=== PATIENT | female | born 1975 | race Caucasian/White ===

== ENCOUNTER 2016-11-18 22:08 | Emergency (ER) | payer MEDICAID, OTHER ==
[~2016-11-18] VITALS: Ht 162.6 cm; Wt 56.7 kg
[2016-11-18 22:15] VITALS: BP 131/106
--- NOTE | 2016-11-18 22:20 | NUR ---
PT TAKEN TO [facility]
--- NOTE | 2016-11-18 22:32 | NUR ---
Dr. Hobson evaluating patient
[2016-11-18] MEDS ORDERED: ALBUTEROL SULFATE/IPRATROPIU 3 ML SOL IH ONE (22:35)
[2016-11-18] MEDS ORDERED: predniSONE 20 MG TAB PO ONE (22:35)
--- NOTE | 2016-11-18 22:37 | NUR ---
PT MOVED TO BED 6
--- NOTE | 2016-11-18 22:37 | NUR ---
41Y/F PRESENT TO ED WITH C/O SOB X 1 DAY. PT. HX. ASTHMA, ON INHALLER, SOB NOT RELIEF. AAO X4, AMBULATORY WITH STEADY GAIT. RESPIRATIONS ROOM AIR, UNLABORED, BILATERAL LUNGS WHEEZING. C/O CHEST PAIN, TIGHNESS 02/14. VSS, ER MD MADE AWARE OF PT. STATUS.
--- NOTE | 2016-11-18 22:38 | NUR ---
RT AT BEDSIDE 1ST HHN TX STRT
--- NOTE | 2016-11-18 22:42 | NUR ---
RESUMED CARE FROM OVERFLOW
--- NOTE | 2016-11-18 22:43 | NUR ---
Respiratory Therapist at bedside for respiratory intervention
[2016-11-19 00:10] VITALS: BP 121/71
--- NOTE | 2016-11-19 00:11 | NUR ---
Patient discharged with v/s stable. Written and verbal after care instructions given and explained. Patient alert, oriented and verbalized understanding of instructions. Ambulatory with steady gait. All questions addressed prior to discharge. ID band removed. Patient advised to follow up with PMD. Rx of MEDROL, ALBUTEROL AND VENTOLIN given. Patient educated on indication of medication including possible reaction and side effects. Opportunity to ask questions provided and answered.
== END 2016-11-19 00:11 | disposition home or self-care (01) ==
LOC: MED 22:08
DX: J45.901 Unspecified asthma with (acute) exacerbation (principal)
CPT/HCPCS: 99283; J7512; J7620